=== PATIENT | female | born 1990 | race Caucasian/White ===

== ENCOUNTER 2016-03-31 12:08 | Emergency (ER) | payer OTHER ==
--- NOTE | 2016-03-31 12:21 | ER Document Report ---
ED Medical Screen (RME) - General Stated Complaint: ABDOMINAL PAIN Notes: 26 yo female c/o lower abdominal pain and swollen lymph nodes x 1 year. stomach pain increasing x 3-4 months. father recently passed with cancer, patient concerned she has cancer too. no fever. + urinary frequency. + constipation. Physical Exam - Vital signs Vitals: Temp Pulse Resp BP Pulse Ox 97.9 F 111 H 18 134/86 H 100 03/31/16 12:15 03/31/16 12:15 03/31/16 12:15 03/31/16 12:15 03/31/16 12:15 Course - Vital Signs Vital signs: Temp Pulse Resp BP Pulse Ox 97.9 F 111 H 18 134/86 H 100 03/31/16 12:15 03/31/16 12:15 03/31/16 12:15 03/31/16 12:15 03/31/16 12:15
[2016-03-31 13:06] LABS: ABSOLUTE BASOPHILS # (AUTO) 0.1 10^3/uL (0.0-0.2); ABSOLUTE LYMPHOCYTES (AUTO) 1.3 10^3/uL (0.5-4.7); ABSOLUTE MONOCYTES (AUTO) 0.6 10^3/uL (0.1-1.4); ABSOLUTE NEUT (AUTO) 3.6 10^3/uL (1.7-8.2); BASOPHILS % (AUTO) 1.3 % (0-2); EOSINOPHILS % (AUTO) 0.5 % (0-6); HEMATOCRIT 32.5 % (36.0-47.0); HGB HCT DIFFERENCE -2.5; LYMPHOCYTES % (AUTO) 22.8 % (13-45); MEAN CORPUSCULAR HEMOGLOBIN 20.1 pg (27.0-33.4); MEAN CORPUSCULAR HGB CONC 30.6 g/dL (32.0-36.0); MEAN CORPUSCULAR VOLUME 66 fl (80-97); MONOCYTES % (AUTO) 11.4 % (3-13); RED BLOOD COUNT 4.97 10^6/uL (3.72-5.28); RED CELL DISTRIBUTION WIDTH 16.5 % (11.5-14.0); WHITE BLOOD COUNT 5.6 10^3/uL (4.0-10.5)
[2016-03-31 13:22] LABS: ALANINE AMINOTRANSFERASE 26 U/L (9-52); ALBUMIN 5.1 g/dL (3.5-5.0); ALKALINE PHOSPHATASE 62 U/L (38-126); ANION GAP 16 (5-19); ASPARTATE AMINO TRANSFERASE 24 U/L (14-36); BILIRUBIN,TOTAL 0.7 mg/dL (0.2-1.3); BLOOD UREA NITROGEN 10 mg/dL (7-20); CALCIUM 9.9 mg/dL (8.4-10.2); CARBON DIOXIDE 24 mmol/L (22-30); CHLORIDE 103 mmol/L (98-107); CREATININE RESULT 0.65 mg/dL (0.52-1.25); GLUCOSE 89 mg/dL (75-110); SODIUM 142.7 mmol/L (137-145); TOTAL PROTEIN 8.1 g/dL (6.3-8.2)
[2016-03-31 13:22] LABS: APPEARANCE,URINE SLIGHTLY-CLOUDY; BILIRUBIN,URINE NEGATIVE (NEGATIVE); GLUCOSE, URINE NEGATIVE (NEGATIVE); KETONES,URINE 20 mg/dL (NEGATIVE); LEUKOCYTE ESTERASE,URINE LARGE (NEGATIVE); NITRITE,URINE NEGATIVE (NEGATIVE); PROTEIN,URINE NEGATIVE (NEGATIVE); URINE SPECIFIC GRAVITY 1.011; UROBILINOGEN,URINE NEGATIVE mg/dL (<2.0)
--- NOTE | 2016-03-31 14:09 | ER Document Report ---
ED General - General Chief Complaint: Abdominal Pain Stated Complaint: ABDOMINAL PAIN Mode of Arrival: Ambulatory Information source: Patient TRAVEL OUTSIDE OF THE [place] IN LAST 30 DAYS: No - HPI Onset: Other - 1 MONTH Onset/Duration: Gradual Quality of pain: Dull, Pressure Severity: Mild Associated symptoms: Nausea. denies: Chills, Fever, Vomiting Exacerbated by: Denies Relieved by: Denies Similar symptoms previously: No Recently seen / treated by doctor: No - Related Data Allergies/Adverse Reactions: amoxicillin [From Augmentin] Allergy (Verified 03/31/16 12:18) clavulanic acid [From Augmentin] Allergy (Verified 03/31/16 12:18) Past Medical History - General Information source: Patient - Social History Smoking Status: Never Smoker Cigarette use (# per day): No Chew tobacco use (# tins/day): No Frequency of alcohol use: None Drug Abuse: None Lives with: Spouse/Significant other Family History: Reviewed & Not Pertinent Patient has suicidal ideation: No Patient has homicidal ideation: No - Medical History Medical History: Negative Renal/ Medical History: Denies: Hx Peritoneal Dialysis Surgical Hx: Negative Review of Systems - Review of Systems Constitutional: No symptoms reported. denies: Diaphoresis, Fever, Weight gain, Weight loss EENT: No symptoms reported Cardiovascular: No symptoms reported Respiratory: No symptoms reported Gastrointestinal: See HPI Genitourinary: See HPI, Frequency, Urgency Female Genitourinary: denies: Musculoskeletal: No symptoms reported Skin: No symptoms reported Hematologic/Lymphatic: Enlarged lymph nodes - ONE ON EACH SIDE OF NECK, FEW IN GROIN, NONE IN AXILLA. NONE TENDER.. denies: Easy bleeding, Easy bruising Neurological/Psychological: No symptoms reported -: Yes All other systems reviewed and negative Physical Exam - Vital signs Vitals: Temp Pulse Resp BP Pulse Ox 97.9 F 111 H 18 134/86 H 100 03/31/16 12:15 03/31/16 12:15 03/31/16 12:15 03/31/16 12:15 03/31/16 12:15 Interpretation: Tachycardic. No: Hypotensive, Tachypneic, Febrile - General General appearance: Appears well, Alert In distress: None - HEENT Head: Normocephalic Eyes: Normal Conjunctiva: Normal Ears: Normal Nasal: Normal Mouth/Lips: Normal Mucous membranes: Normal Pharynx: Normal Neck: Normal, Shotty nodes. No: Lymphadenopathy - NODES OF NORMAL SIZE, NONTENDERFEW - Respiratory Respiratory status: No respiratory distress Breath sounds: Normal - Cardiovascular Rhythm: Regular Heart sounds: Normal auscultation Murmur: No - Abdominal Inspection: Normal Distension: No distension Bowel sounds: Normal Tenderness: Tender - MILD, SUPRAPUBIC. Organomegaly: No organomegaly. No: Hepatomegaly, Splenomegaly - Back Back: Normal, Nontender. No: CVA tenderness - Extremities General upper extremity: Normal inspection General lower extremity: Normal inspection - Neurological Neuro grossly intact: Yes Cognition: Normal Orientation: AAOx4 - Psychological Associated symptoms: Normal affect, Normal mood - Skin Skin Temperature: Warm Skin Moisture: Dry Skin Color: Normal Skin Turgor: Elastic Course - Vital Signs Vital signs: Temp Pulse Resp BP Pulse Ox 98.5 F 85 18 112/83 99 03/31/16 14:43 03/31/16 14:43 03/31/16 14:43 03/31/16 14:43 03/31/16 14:43 - Laboratory Result Diagrams: 03/31/16 12:25 03/31/16 12:25 Laboratory results interpreted by me: 03/31/16 03/31/16 03/31/16 12:25 12:25 12:30 Hgb 10.0 L Hct 32.5 L MCV 66 L MCH 20.1 L MCHC 30.6 L RDW 16.5 H Albumin 5.1 H Urine Ketones 20 H Ur Leukocyte Esterase LARGE H Discharge - Discharge Clinical Impression: Abdominal pain Qualifiers: Abdominal location: lower abdomen, unspecified Qualified Code(s): R10.30 - Lower abdominal pain, unspecified Urinary tract infection Qualifiers: Urinary tract infection type: acute cystitis Hematuria presence: without hematuria Qualified Code(s): N30.00 - Acute cystitis without hematuria Condition: Stable Disposition: HOME, SELF-CARE Instructions: Abdominal Pain ([facility]), Urinary Tract Infection ([facility]), Lymphadenopathy ([facility]), Nitrofurantoin ([facility]), Bulk Laxatives Additional Instructions: MEDS DIRECTED. DRINK PLENTY OF FLUIDS. TAKE METAMUCIL OR OTHER FIBER-CONTAINING LAXATIVE NEEDED TO KEEP STOOLS SOFT. FOLLOW UP WITH YOUR PRIMARY CARE PROVIDER OR RETURN TO E.R. IF PROBLEMS. Prescriptions: Nitrofurantoin/Nitrofuran Mac [Macrobid 100 mg Capsule] 100 mg PO BID #20 capsule
[2016-03-31 14:44] VITALS: BP 112/83
== END 2016-03-31 15:00 | disposition home or self-care (01) ==
LOC: ER 12:08
DX: N30.00 Acute cystitis without hematuria (principal); R10.30 Lower abdominal pain, unspecified; R11.0 Nausea; Z88.0 Allergy status to penicillin
CPT/HCPCS: 36415; 80053; 81001; 85025; 87086; 87088; 99284